=== PATIENT | female | born 2000 | race Caucasian/White ===

== ENCOUNTER 2021-07-29 17:50 | Emergency (ER) | payer OTHER, SELFPAY ==
[2021-07-29] MEDS ORDERED: Acetaminophen 500 MG TAB ONE (19:22)
== END 2021-07-29 20:35 | disposition home or self-care (01) ==
LOC: CSHERS 17:50
DX: S16.1XXA Strain of muscle, fascia and tendon at neck level, initial encounter (principal); S60.312A Abrasion of left thumb, initial encounter; V49.50XA Passenger injured in collision with unspecified motor vehicles in traffic accident, initial encounter
CPT/HCPCS: 72125